=== PATIENT | male | born 1990 | race Caucasian/White ===

== ENCOUNTER 2021-10-29 07:56 | Day surgery (SDC) | payer OTHER ==
[~2021-10-29] VITALS: Ht 185.4 cm; Wt 113.4 kg
[2021-10-29] MEDS ORDERED: fentaNYL citrate 0.05 MG/ML VIAL ONE (09:49)
[2021-10-29] MEDS ORDERED: LIDOCAINE 2% 100 MG/5 ML UJET TP ONE (09:50)
[2021-10-29] MEDS ORDERED: MIDAZOLAM 5 MG/5 ML VIAL ONE (09:50)
== END 2021-10-29 11:00 | disposition home or self-care (01) ==
LOC: MMU 07:56 → MDS 07:56
PROVIDERS: ATTEND Internal Medicine Gastroenterology
DX: K62.5 Hemorrhage of anus and rectum (principal); K62.89 Other specified diseases of anus and rectum; Z20.822 Contact with and (suspected) exposure to COVID-19
CPT/HCPCS: 45330; 87426; J2250; J3010